=== PATIENT | female | born 1965 | race Hispanic/Latino ===

== ENCOUNTER → 2017-06-08 | Outpatient (CLI) | payer BC, OTHER ==
[~2017-06-08] MED LIST: CEPH500T PO; MELO-106 PO
== END | disposition home or self-care (01) ==
LOC: RAH 15:27
PROVIDERS: ATTEND Obstetrics & Gynecology
DX: Z12.31 Encounter for screening mammogram for malignant neoplasm of breast (principal)
CPT/HCPCS: 77067

== ENCOUNTER → 2018-12-08 | Outpatient (CLI) | payer BC, OTHER | END | disposition home or self-care (01) | LOC: RAH 08:45 | PROVIDERS: ATTEND Obstetrics & Gynecology | DX: Z12.31 Encounter for screening mammogram for malignant neoplasm of breast (principal) | CPT/HCPCS: 77067 ==